=== PATIENT | female | born 1990 | race Caucasian/White ===

== ENCOUNTER 2018-10-15 01:44 | Emergency (ER) | payer OTHER ==
[~2018-10-15] VITALS: Ht 170.2 cm; Wt 73.9 kg
[~2018-10-15 01:44] MED LIST: AMOXIL 875 MG875 M1 PO; AUGMENTIN 875875 M1 PO; CIPROFLOXACIN500 M1 PO; LORTABELXR PO; MEDROLDOSEPACK PO; NORCO 5-325 TA1 EACH PO; PHENERGAN 25 MG25 M1 PO; ZPAK PO
[2018-10-15] MEDS ORDERED: HYDROCODON-ACE1 EAC7 PO (04:01)
[2018-10-15] MEDS ORDERED: KEFLEX500 M1 PO (04:07)
[2018-10-15 04:10] VITALS: BP 122/67
== END 2018-10-15 04:10 | disposition home or self-care (01) ==
LOC: M.ERS 01:44
DX: S91.111A Laceration without foreign body of right great toe without damage to nail, initial encounter (principal); W25.XXXA Contact with sharp glass, initial encounter; Y93.89 Activity, other specified; Y92.89 Other specified places as the place of occurrence of the external cause; Y99.8 Other external cause status